=== PATIENT | male | born 1975 | race Caucasian/White ===

== ENCOUNTER 2018-02-18 09:30 | Inpatient (IN) | payer OTHER ==
[2018-02-18 10:48] VITALS: BMI 24.8
--- NOTE | 2018-02-18 11:37 | HP ---
CIWA Score - CIWA Score Nausea/Vomitin-Mild Nausea/No Vomiting Muscle Tremors: 2 Anxiety: 2 Agitation: 0-Normal Activity Paroxysmal Sweats: 1-Minimal Palms Moist Orientation: 1-Uncertain about Date Tacttile Disturbances: 2-Mild Itch/Numbness/Burn Auditory Disturbances: 0-None Visual Disturbances: 0-None Headache: 2-Mild CIWA-Ar Total Score: 11 Admission [facility] - HPI Chief Complaint: ETOH withdrawal symptoms. Allergies/Adverse Reactions: Allergies Allergy/AdvReac Type Severity Reaction Status Date / Time No Known Allergies Allergy Verified 02/18/18 11:19 History of Present Illness: Patient presents with ETOH withdrawal symptoms and crack/cocaine dependence. Patient started drinking at age 15. Patient drinks up to one case of beer and 1 pint of liquor daily. Patient denies hx of seizures. Patient also smokes crack/ cocaine since age 15 and unable to quantify amount he uses. States when he does use, he binges on crack/cocaine for days. Last time he drank ETOH and Smoked crack cocaine was last night. Patient smokes marijuana as well. Last time he smoked was last night. Smokes 2-3 joints daily. Denies SI/HI and suicide attempts. Exam Limitations: No Limitations - Ebola screening Have you traveled outside of the country in the last 21 days: No Have you had contact with anyone from an Ebola affected area: No Have you been sick,other than usual withdrawal symptoms: No Do you have a fever: No - Review of Systems Constitutional: Chills, Night Sweats, Changes in sleep, Unexplained wgt Loss EENT: reports: No Symptoms Reported Respiratory: reports: No Symptoms reported Cardiac: reports: No Symptoms Reported GI: reports: Diarrhea, Nausea, Poor Fluid Intake, Abdominal cramping : reports: No Symptoms Reported Musculoskeletal: reports: Joint Pain, Muscle Pain Integumentary: reports: Sweating Neuro: reports: Headache, Numbness, Tingling, Tremors Endocrine: reports: Unexplained Weight Loss Hematology: reports: No Symptoms Reported Psychiatric: reports: Anxious, Depressed Patient History - Patient Medical History Hx Anemia: No Hx Asthma: No Hx Chronic Obstructive Pulmonary Disease (COPD): No Hx Cancer: No Hx Cardiac Disorders: No Hx Congestive Heart Failure: No Hx Hypertension: No Hx Hypercholesterolemia: No Hx Pacemaker: No HX Cerebrovascular Accident: No Hx Seizures: No Hx Dementia: No Hx Diabetes: No Hx Gastrointestinal Disorders: No Hx Liver Disease: No Hx Genitourinary Disorders: No Hx Sexually Transmitted Disorders: No Hx Renal Disease (ESRD): No Hx Thyroid Disease: No Hx Human Immunodeficiency Virus (HIV): No Hx Hepatitis C: No Hx Depression: No Hx Suicide Attempt: No Hx Bipolar Disorder: No Hx Schizophrenia: No - Patient Surgical History Past Surgical History: No Hx Neurologic Surgery: No Hx Cataract Extraction: No Hx Cardiac Surgery: No Hx Lung Surgery: No Hx Breast Surgery: No Hx Breast Biopsy: No Hx Abdominal Surgery: No Hx Appendectomy: No Hx Cholecystectomy: No Hx Genitourinary Surgery: No Hx Orthopedic Surgery: No Anesthesia Reaction: No - PPD History Previous Implant?: Yes Documented Results: Negative w/o proof Implanted On Prior R Admission?: No PPD to be Administered?: Yes - Smoking Cessation Smoking history: Current every day smoker Have you smoked in the past 12 months: Yes Aproximately how many cigarettes per day: 10 Hx Chewing Tobacco Use: No Initiated information on smoking cessation: Yes 'Breaking Loose' booklet given: 02/18/18 - Substance & Tx. History Hx Alcohol Use: Yes Hx Substance Use: Yes Substance Use Type: Alcohol, Cocaine, Marijuana Hx Substance Use Treatment: No - Substances Abused Crack Route: Smoking Frequency: 3-6 times per week Amount used: $100 Age of first use: 15 Date of Last Use: 02/17/18 Alcohol-cognac/beer Route: Oral Frequency: 3-6 times per week Amount used: 2 pts/1 case Age of first use: 15 Date of Last Use: 02/17/18 Marijuana Route: Smoking Frequency: Daily Amount used: $20-30 Age of first use: 15 Date of Last Use: 02/17/18 Family Disease History - Family Disease History Family Disease History: Diabetes: Mother Admission Physical Exam S - Vital Signs Vital Signs: Vital Signs - 24 hr 02/18/18 10:27 Temperature 97.3 F L Pulse Rate 64 Respiratory 20 Rate Blood Pressure 135/75 Cleared for Admission [facility] - Detox or Rehab [facility] Level of Care: Medically Managed Detox Regimen/Protocol: Librium [facility] Breath Alcohol Content Breath Alcohol Content: 0 Urine Drug Screen - Results Drug Screen Negative: No Urine Drug Screen Results: THC-Marijuana, BRIAN-Cocaine
[2018-02-18] MEDS ORDERED: IBUPROFEN 400 MG TABLET (FP) PO PRN (11:47)
[2018-02-18] MEDS ORDERED: MAGNESIUM HYDROX 2400MG/30ML ORAL SUSPENSION 30 ML CUP PO PRN (11:47)
[2018-02-18] MEDS ORDERED: P-EPHED 60MG/TRIPROLIDI 2.5MG TABLET PO PRN (11:47)
[2018-02-18] MEDS ORDERED: NICOTINE POLACRILEX 2 MG GUM BUC PRN (11:47)
[2018-02-18] MEDS ORDERED: ACETAMINOPHEN 325 MG TABLET (FP) PO PRN (11:47)
[2018-02-18] MEDS ORDERED: MENTHOL/PHENOL 1 EACH UD MM PRN (11:47)
[2018-02-18] MEDS ORDERED: hydrOXYzine PAMOATE 50 MG CAPSULE (FP) PO PRN (11:47)
[2018-02-18] MEDS ORDERED: LOPERAMIDE HCL 2 MG CAPSULE PO PRN (11:47)
[2018-02-18] MEDS ORDERED: guaiFENesin/D-METHORPHAN HB 10 ML UNIT-DOSE CUPS PO PRN (11:47)
[2018-02-18] MEDS ORDERED: MAGNESIUM CITRATE 300 ML BOTTLE PO PRN (11:47)
[2018-02-18] MEDS ORDERED: MAG HYDROX/AL HYDROX/SIMETH 30 ML UNIT-DOSE CUP PO PRN (11:47)
[2018-02-18] MEDS ORDERED: chlordiazePOXIDE HCL 25 MG CAPSULE PO PRN (11:50)
[2018-02-18 14:44] LABS: HEMATOCRIT 41.7 % (35.4-49); HEMOGLOBIN 14.2 GM/dL (11.7-16.9); MCH 28.5 pg (25.7-33.7); MEAN CELL VOLUME 83.8 fl (80-96); MEAN PLT VOLUME 9.1 fl (7.5-11.1); PLATELET COUNT 206 K/MM3 (134-434); RBC 4.98 M/mm3 (4.00-5.60); RDW 14.7 % (11.9-15.9); WHITE BLOOD COUNT 8.5 K/mm3 (4.0-10.0)
[2018-02-18 14:58] LABS: ALBUMIN 3.6 g/dl (3.4-5.0); ANION GAP 5 (8-16); BLOOD UREA NITROGEN 25 mg/dL (7-18); CALCIUM 8.7 mg/dL (8.5-10.1); CHLORIDE 105 mmol/L (98-107); CO2 29 mmol/L (21-32); GLUCOSE,RANDOM 76 mg/dL (74-106); POTASSIUM 4.3 mmol/L (3.5-5.1); SODIUM 139 mmol/L (136-145)
[2018-02-18 15:02] LABS: ALK PHOS 74 U/L (45-117); SGOT/AST 28 U/L (15-37); SGPT/ALT 23 U/L (12-78); TOT PROT 6.6 g/dl (6.4-8.2)
--- NOTE | 2018-02-18 15:49 | EKG ---
Test Reason : Blood Pressure : / mmHG Vent. Rate : 055 BPM Atrial Rate : 055 BPM P-R Int : 188 ms QRS Dur : 084 ms QT Int : 452 ms P-R-T Axes : 061 061 056 degrees QTc Int : 432 ms SINUS BRADYCARDIA EARLY REPOLARIZATION OTHERWISE NORMAL ECG NO PREVIOUS ECGS AVAILABLE Confirmed by MAURO SINGH, RAYNE ([id number]) on 02/18/2018 3:49:48 PM Referred By: Confirmed By:RAYNE WADE MD
[2018-02-18] MEDS: chlordiazePOXIDE HCL 25 MG CAPSULE PO SCH ×2 (17:58→22:41)
[2018-02-18 18:40] LABS: URINE APPEARANCE TURBID; URINE BILIRUBIN NEGATIVE (<2.0 mg/dL); URINE COLOR AMBER; URINE GLUCOSE (UA) NEGATIVE (NEGATIVE); URINE KETONE NEGATIVE (NEGATIVE); URINE LEUK ESTERASE TRACE (NEGATIVE); URINE NITRITE NEGATIVE (NEGATIVE); URINE UROBILINOGEN NEGATIVE mg/dL (0.2-1.0)
[2018-02-18 18:42] LABS: URINE PROTEIN 1+ (NEGATIVE)
[2018-02-18 18:56] LABS: URINE MUCUS MANY
[2018-02-18] MEDS ORDERED: MELATONIN 5 MG TABLETS PO PRN (22:00)
[2018-02-18] MEDS: THIAMINE HCL 100 MG TABLET (FP) PO SCH (22:41)
[2018-02-19] MEDS: chlordiazePOXIDE HCL 25 MG CAPSULE PO SCH ×4 (06:13→23:31)
--- NOTE | 2018-02-19 09:26 | CONSULT ---
[facility] Psychiatric Consult - Data Date of interview: 02/19/18 Admission source: [facility] Identifying data: Patient is a 42 year old single male, without kids, unemployed , and homeless. This is patient's first admission to detox. Pt. admitted to for alcohol and marijuana dependence. Substance Abuse History: - Smoking Cessation. Smoking history: Current every day smoker. Have you smoked in the past 12 months: Yes. Aproximately how many cigarettes per day: 10. Hx Chewing Tobacco Use: No. Initiated information on smoking cessation: Yes. 'Breaking Loose' booklet given: 02/18/18. - Substance & Tx. History. Hx Alcohol Use: Yes. Hx Substance Use: Yes. Substance Use Type : Alcohol, Cocaine, Marijuana. Hx Substance Use Treatment: No. - Substances Abused. Crack. Route: Smoking. Frequency: 3-6 times per week. Amount used : $100. Age of first use: 15. Date of Last Use: 02/17/18. Alcohol-cognac/ beer. Route: Oral. Frequency: 3-6 times per week. Amount used: 2 pts/1 case. Age of first use: 15. Date of Last Use: 02/17/18. Marijuana. Route: Smoking. Frequency: Daily. Amount used: $20-30. Age of first use: 15. Date of Last Use: 02/17/18 Medical History: Denies. Psychiatric History: Patient denies h/o psychiatric hospitalization, outpatient care, and suicide attempt. Physical/Sexual Abuse/Trauma History: Denies. Mental Status Exam - Mental Status Exam Alert and Oriented to: Time, Place, Person Cognitive Function: Good Patient Appearance: Well Groomed Mood: Withdrawn Affect: Mood Congruent Patient Behavior: Fatigued, Guarded Speech Pattern: Delayed Voice Loudness: Moderately Soft/Quiet Thought Process: Goal Oriented Thought Disorder: Not Present Hallucinations: Denies Suicidal Ideation: Denies Homicidal Ideation: Denies Insight/Judgement: Poor Sleep: Fair Appetite: Fair Muscle strength/Tone: Normal Gait/Station: Other (Did not observe patient's gait.) Psychiatric Findings - Problem List ([place] 1, 2,3) (1) Substance induced mood disorder Current Visit: Yes Status: Acute (2) Alcohol dependence with uncomplicated withdrawal Current Visit: Yes Status: Acute (3) Cannabis dependence, uncomplicated Current Visit: Yes Status: Acute (4) Cocaine dependence, uncomplicated Current Visit: Yes Status: Acute - Initial Treatment Plan Initial Treatment Plan: Psychoeducation provided. Detoxification in progress. Observation.
--- NOTE | 2018-02-19 10:29 | PN ---
S CIWA - CIWA Score Nausea/Vomitin-No Nausea/No Vomiting Muscle Tremors: 4-Moderate,w/Arms Extend Anxiety: 4-Mod. Anxious/Guarded Agitation: 4-Moderately Restless Paroxysmal Sweats: 1-Minimal Palms Moist Orientation: 0-Oriented Tacttile Disturbances: 0-None Auditory Disturbances: 0-None Visual Disturbances: 0-None Headache: 0-None Present CIWA-Ar Total Score: 13 BHS Progress Note (SOAP) Subjective: ANXIETY,SLIGHT TREMORS,SWEATS. Objective: 02/19/18 10:29 Vital Signs 02/19/18 02/19/18 02/19/18 03:30 05:52 06:30 Temperature 97.6 F Pulse Rate 57 L Respiratory 18 18 18 Rate Blood Pressure 100/62 02/19/18 09:13 Temperature 97.2 F L Pulse Rate 73 Respiratory 18 Rate Blood Pressure 103/77 Laboratory Tests 02/18/18 02/18/18 02/18/18 11:30 11:50 11:50 WBC 8.5 RBC 4.98 Hgb 14.2 Hct 41.7 MCV 83.8 MCH 28.5 MCHC 34.0 RDW 14.7 Plt Count 206 MPV 9.1 Sodium 139 Potassium 4.3 Chloride 105 Carbon Dioxide 29 Anion Gap 5 L BUN 25 H Creatinine 1.0 Creat Clearance w eGFR > 60 Random Glucose 76 Calcium 8.7 Total Bilirubin 1.0 AST 28 ALT 23 Alkaline Phosphatase 74 Total Protein 6.6 Albumin 3.6 Urine Color Urine Appearance Urine pH Ur Specific [place] Urine Protein Urine Glucose (UA) Urine Ketones Urine Blood Urine Nitrite Urine Bilirubin Urine Urobilinogen Ur Leukocyte Esterase Urine WBC (Auto) Urine RBC (Auto) Urine Mucus RPR Titer HIV 1&2 Antibody Screen Negative HIV P24 Antigen Negative 02/18/18 02/18/18 11:50 13:34 WBC RBC Hgb Hct MCV MCH MCHC RDW Plt Count MPV Sodium Potassium Chloride Carbon Dioxide Anion Gap BUN Creatinine Creat Clearance w eGFR Random Glucose Calcium Total Bilirubin AST ALT Alkaline Phosphatase Total Protein Albumin Urine Color Farhana Urine Appearance Turbid Urine pH 6.0 Ur Specific [place] 1.032 Urine Protein 1+ H Urine Glucose (UA) Negative Urine Ketones Negative Urine Blood Negative Urine Nitrite Negative Urine Bilirubin Negative Urine Urobilinogen Negative Ur Leukocyte Esterase Trace Urine WBC (Auto) 4 Urine RBC (Auto) 2 Urine Mucus Many RPR Titer Nonreactive HIV 1&2 Antibody Screen HIV P24 Antigen Assessment: 02/19/18 10:29 WITHDRAWAL SX Plan: CONTINUE DETOX
[2018-02-19] MEDS: PRENATAL VITAMINS W/ FOLIC ACID TABLET (FP) PO SCH (10:32)
[2018-02-19] MEDS: NICOTINE 21 MG/24 HOURS TOPICAL PATCH TD SCH (10:32)
[2018-02-19] MEDS: THIAMINE HCL 100 MG TABLET (FP) PO SCH (23:31)
[2018-02-20] MEDS: chlordiazePOXIDE HCL 25 MG CAPSULE PO SCH (06:56)
[2018-02-20] MEDS ORDERED: diazePAM 5 MG TABLET PO PRN (09:47)
[2018-02-20] MEDS ORDERED: diazePAM 5 MG TABLET PO ONE (09:47)
[2018-02-20] MEDS: NICOTINE 21 MG/24 HOURS TOPICAL PATCH TD SCH (10:32)
[2018-02-20] MEDS: PRENATAL VITAMINS W/ FOLIC ACID TABLET (FP) PO SCH (10:33)
[2018-02-20] MEDS: diazePAM 5 MG TABLET PO SCH ×2 (10:34→22:47)
--- NOTE | 2018-02-20 11:13 | PN ---
S CIWA - CIWA Score Nausea/Vomitin-No Nausea/No Vomiting Muscle Tremors: 1-None Visible, but [place] Anxiety: 5 Agitation: 4-Moderately Restless Paroxysmal Sweats: 3 Orientation: 0-Oriented Tacttile Disturbances: 0-None Auditory Disturbances: 0-None Visual Disturbances: 0-None Headache: 0-None Present CIWA-Ar Total Score: 13 S Progress Note (SOAP) Subjective: C/O DRENCHING SWEATS(SHIRTS OFF0, MUSCLE ACHES,ANXIETY,IRRITABILITY,FATIGUE. PT REFUSED TO TAKE LIBRIUM PREVIOUS DAYS STATING "I DON'T LIKE THE TASTE". DISCUSSED WITH PATIENT WILL CHANGE PROTOCOL TO VALIUM REGIMEN. PT IS IN AGREEMENT TO TAKE VALIUM INSTEAD OF LIBRIUM FOR DETOX WITHDRAWAL SX. Objective: 02/20/18 11:12 Vital Signs 02/20/18 02/20/18 02/20/18 03:30 06:12 09:04 Temperature 97.3 F L 97.9 F Pulse Rate 62 61 Respiratory 18 16 18 Rate Blood Pressure 122/80 123/76 Laboratory Tests 02/18/18 02/18/18 02/18/18 11:30 11:50 11:50 WBC 8.5 RBC 4.98 Hgb 14.2 Hct 41.7 MCV 83.8 MCH 28.5 MCHC 34.0 RDW 14.7 Plt Count 206 MPV 9.1 Sodium 139 Potassium 4.3 Chloride 105 Carbon Dioxide 29 Anion Gap 5 L BUN 25 H Creatinine 1.0 Creat Clearance w eGFR > 60 Random Glucose 76 Calcium 8.7 Total Bilirubin 1.0 AST 28 ALT 23 Alkaline Phosphatase 74 Total Protein 6.6 Albumin 3.6 Urine Color Urine Appearance Urine pH Ur Specific [place] Urine Protein Urine Glucose (UA) Urine Ketones Urine Blood Urine Nitrite Urine Bilirubin Urine Urobilinogen Ur Leukocyte Esterase Urine WBC (Auto) Urine RBC (Auto) Urine Mucus RPR Titer HIV 1&2 Antibody Screen Negative HIV P24 Antigen Negative 02/18/18 02/18/18 11:50 13:34 WBC RBC Hgb Hct MCV MCH MCHC RDW Plt Count MPV Sodium Potassium Chloride Carbon Dioxide Anion Gap BUN Creatinine Creat Clearance w eGFR Random Glucose Calcium Total Bilirubin AST ALT Alkaline Phosphatase Total Protein Albumin Urine Color Farhana Urine Appearance Turbid Urine pH 6.0 Ur Specific [place] 1.032 Urine Protein 1+ H Urine Glucose (UA) Negative Urine Ketones Negative Urine Blood Negative Urine Nitrite Negative Urine Bilirubin Negative Urine Urobilinogen Negative Ur Leukocyte Esterase Trace Urine WBC (Auto) 4 Urine RBC (Auto) 2 Urine Mucus Many RPR Titer Nonreactive HIV 1&2 Antibody Screen HIV P24 Antigen Assessment: 02/20/18 11:12 WITHDRAWAL SX Plan: CONTINUE DETOX. D/C LIBRIUM TAPER. START VALIUM TAPER DIRECTED. INCREASE PO FLUIDS.
[2018-02-20] MEDS ORDERED: chlordiazePOXIDE 5 MG CAPSULE PO SCH (17:00)
[2018-02-20] MEDS: THIAMINE HCL 100 MG TABLET (FP) PO SCH (22:47)
[2018-02-21] MEDS: PRENATAL VITAMINS W/ FOLIC ACID TABLET (FP) PO SCH (10:40)
[2018-02-21] MEDS: diazePAM 5 MG TABLET PO SCH ×2 (10:41→22:46)
[2018-02-21] MEDS: NICOTINE 21 MG/24 HOURS TOPICAL PATCH TD SCH (11:41)
--- NOTE | 2018-02-21 16:38 | PN ---
BHS Progress Note (SOAP) Subjective: Sweating, Anxious, Fatigue. Objective: PATIENT A & O X 3, OBSERVED AMBULATING ON UNIT. NO ACUTE DISTRESS. 02/21/18 16:36 Vital Signs Temperature 98.4 F 02/21/18 06:13 Pulse Rate 54 L 02/21/18 06:13 Respiratory Rate 18 02/21/18 06:30 Blood Pressure 104/67 02/21/18 06:13 O2 Sat by Pulse Oximetry (%) Laboratory Tests 02/18/18 02/18/18 02/18/18 11:30 11:50 11:50 WBC 8.5 RBC 4.98 Hgb 14.2 Hct 41.7 MCV 83.8 MCH 28.5 MCHC 34.0 RDW 14.7 Plt Count 206 MPV 9.1 Sodium 139 Potassium 4.3 Chloride 105 Carbon Dioxide 29 Anion Gap 5 L BUN 25 H Creatinine 1.0 Creat Clearance w eGFR > 60 Random Glucose 76 Calcium 8.7 Total Bilirubin 1.0 AST 28 ALT 23 Alkaline Phosphatase 74 Total Protein 6.6 Albumin 3.6 Urine Color Urine Appearance Urine pH Ur Specific [place] Urine Protein Urine Glucose (UA) Urine Ketones Urine Blood Urine Nitrite Urine Bilirubin Urine Urobilinogen Ur Leukocyte Esterase Urine WBC (Auto) Urine RBC (Auto) Urine Mucus RPR Titer HIV 1&2 Antibody Screen Negative HIV P24 Antigen Negative 02/18/18 02/18/18 11:50 13:34 WBC RBC Hgb Hct MCV MCH MCHC RDW Plt Count MPV Sodium Potassium Chloride Carbon Dioxide Anion Gap BUN Creatinine Creat Clearance w eGFR Random Glucose Calcium Total Bilirubin AST ALT Alkaline Phosphatase Total Protein Albumin Urine Color Farhana Urine Appearance Turbid Urine pH 6.0 Ur Specific [place] 1.032 Urine Protein 1+ H Urine Glucose (UA) Negative Urine Ketones Negative Urine Blood Negative Urine Nitrite Negative Urine Bilirubin Negative Urine Urobilinogen Negative Ur Leukocyte Esterase Trace Urine WBC (Auto) 4 Urine RBC (Auto) 2 Urine Mucus Many RPR Titer Nonreactive HIV 1&2 Antibody Screen HIV P24 Antigen LABS NOTED. Assessment: 02/21/18 16:37 WITHDRAWAL SYMPTOMS. Plan: CONTINUE DETOX. INCREASE DAILY PO FLUID INTAKE.
[2018-02-21] MEDS ORDERED: chlordiazePOXIDE HCL 10 MG CAPSULE PO SCH (17:00)
[2018-02-21] MEDS: THIAMINE HCL 100 MG TABLET (FP) PO SCH (22:46)
[2018-02-22] MEDS ORDERED: diazePAM 5 MG TABLET PO SCH (10:00)
[2018-02-22] MEDS: NICOTINE 21 MG/24 HOURS TOPICAL PATCH TD SCH (11:00)
[2018-02-22] MEDS: PRENATAL VITAMINS W/ FOLIC ACID TABLET (FP) PO SCH (11:00)
--- NOTE | 2018-02-22 12:30 | PN ---
BHS Progress Note (SOAP) Subjective: states he is feeling fine Objective: 02/22/18 12:29 Vital Signs - 24 hr 02/21/18 02/21/18 02/22/18 18:02 22:09 00:30 Temperature 97.4 F L 98.9 F Pulse Rate 61 79 Respiratory 16 16 18 Rate Blood Pressure 105/62 116/77 02/22/18 02/22/18 02/22/18 03:30 06:07 06:30 Temperature 97.1 F L Pulse Rate 55 L Respiratory 18 18 18 Rate Blood Pressure 125/83 02/22/18 09:13 Temperature 97 F L Pulse Rate 59 L Respiratory 18 Rate Blood Pressure 108/72 Laboratory Tests 02/18/18 02/18/18 02/18/18 11:30 11:50 11:50 WBC 8.5 RBC 4.98 Hgb 14.2 Hct 41.7 MCV 83.8 MCH 28.5 MCHC 34.0 RDW 14.7 Plt Count 206 MPV 9.1 Sodium 139 Potassium 4.3 Chloride 105 Carbon Dioxide 29 Anion Gap 5 L BUN 25 H Creatinine 1.0 Creat Clearance w eGFR > 60 Random Glucose 76 Calcium 8.7 Total Bilirubin 1.0 AST 28 ALT 23 Alkaline Phosphatase 74 Total Protein 6.6 Albumin 3.6 Urine Color Urine Appearance Urine pH Ur Specific [place] Urine Protein Urine Glucose (UA) Urine Ketones Urine Blood Urine Nitrite Urine Bilirubin Urine Urobilinogen Ur Leukocyte Esterase Urine WBC (Auto) Urine RBC (Auto) Urine Mucus RPR Titer HIV 1&2 Antibody Screen Negative HIV P24 Antigen Negative 02/18/18 02/18/18 11:50 13:34 WBC RBC Hgb Hct MCV MCH MCHC RDW Plt Count MPV Sodium Potassium Chloride Carbon Dioxide Anion Gap BUN Creatinine Creat Clearance w eGFR Random Glucose Calcium Total Bilirubin AST ALT Alkaline Phosphatase Total Protein Albumin Urine Color Farhana Urine Appearance Turbid Urine pH 6.0 Ur Specific [place] 1.032 Urine Protein 1+ H Urine Glucose (UA) Negative Urine Ketones Negative Urine Blood Negative Urine Nitrite Negative Urine Bilirubin Negative Urine Urobilinogen Negative Ur Leukocyte Esterase Trace Urine WBC (Auto) 4 Urine RBC (Auto) 2 Urine Mucus Many RPR Titer Nonreactive HIV 1&2 Antibody Screen HIV P24 Antigen nl VS, nl labs grossly nl PE Assessment: 02/22/18 12:30 Patient presents with ETOH dependence, doing well Plan: continue detox protocol
[2018-02-22] MEDS: THIAMINE HCL 100 MG TABLET (FP) PO SCH (22:42)
[2018-02-23 09:36] VITALS: BP 105/73; PULSE 72; TEMP 98.6
--- NOTE | 2018-02-23 16:30 | PN ---
S Progress Note (SOAP) Subjective: Patient reports mild sweating; patient denies any other withdrawal symptoms at this time. Objective: PATIENT A & O X 3, OBSERVED AMBULATING ON UNIT. NO ACUTE DISTRESS. 02/23/18 16:28 Vital Signs Temperature 98.6 F 02/23/18 09:35 Pulse Rate 72 02/23/18 09:35 Respiratory Rate 18 02/23/18 09:35 Blood Pressure 105/73 02/23/18 09:35 O2 Sat by Pulse Oximetry (%) Laboratory Tests 02/18/18 02/18/18 02/18/18 11:30 11:50 11:50 WBC 8.5 RBC 4.98 Hgb 14.2 Hct 41.7 MCV 83.8 MCH 28.5 MCHC 34.0 RDW 14.7 Plt Count 206 MPV 9.1 Sodium 139 Potassium 4.3 Chloride 105 Carbon Dioxide 29 Anion Gap 5 L BUN 25 H Creatinine 1.0 Creat Clearance w eGFR > 60 Random Glucose 76 Calcium 8.7 Total Bilirubin 1.0 AST 28 ALT 23 Alkaline Phosphatase 74 Total Protein 6.6 Albumin 3.6 Urine Color Urine Appearance Urine pH Ur Specific [place] Urine Protein Urine Glucose (UA) Urine Ketones Urine Blood Urine Nitrite Urine Bilirubin Urine Urobilinogen Ur Leukocyte Esterase Urine WBC (Auto) Urine RBC (Auto) Urine Mucus RPR Titer HIV 1&2 Antibody Screen Negative HIV P24 Antigen Negative 02/18/18 02/18/18 11:50 13:34 WBC RBC Hgb Hct MCV MCH MCHC RDW Plt Count MPV Sodium Potassium Chloride Carbon Dioxide Anion Gap BUN Creatinine Creat Clearance w eGFR Random Glucose Calcium Total Bilirubin AST ALT Alkaline Phosphatase Total Protein Albumin Urine Color Farhana Urine Appearance Turbid Urine pH 6.0 Ur Specific [place] 1.032 Urine Protein 1+ H Urine Glucose (UA) Negative Urine Ketones Negative Urine Blood Negative Urine Nitrite Negative Urine Bilirubin Negative Urine Urobilinogen Negative Ur Leukocyte Esterase Trace Urine WBC (Auto) 4 Urine RBC (Auto) 2 Urine Mucus Many RPR Titer Nonreactive HIV 1&2 Antibody Screen HIV P24 Antigen LABS NOTED. Assessment: 02/23/18 16:28 COMPLETION OF DETOX REGIMEN. Plan: PATIENT SCHEDULED FOR DISCHARGE FROM DETOX UNIT TODAY. PATIENT OFFERED OPPORTUNITY TO GO TO [facility], HOWEVER, PATIENT DECLINED AND ELECTED TO GO HOME INSTEAD.
--- NOTE | 2018-02-23 16:34 | DS ---
[facility] Detox Discharge Summary Admission Date: 02/18/18 Discharge Date: 02/23/18 - History Present History: Alcohol Dependence, Cannabis Dependence, Cocaine Dependence Additional Comments: PATIENT OFFERED OPPORTUNITY TO GO TO APPLY FOR ADMISSION TO [facility] FOR AFTERCARE; HOWEVER, PATIENT ELECTED TO GO HOME INSTEAD. PATIENT ADVISED TO CONSIDER LOCAL 12-STEP / NA/ AA OUTPATIENT SUPPORT GROUPS FOR AFTERCARE. PATIENT WAS DISCHARGED FROM DETOX UNIT IN STABLE MEDICAL CONDITION. - Physical Exam Results Vital Signs: Vital Signs Temperature 98.6 F 02/23/18 09:35 Pulse Rate 72 02/23/18 09:35 Respiratory Rate 18 02/23/18 09:35 Blood Pressure 105/73 02/23/18 09:35 O2 Sat by Pulse Oximetry (%) Pertinent Admission Physical Exam Findings: WITHDRAWAL SYMPTOMS. Laboratory Tests 02/18/18 02/18/18 02/18/18 11:30 11:50 11:50 WBC 8.5 RBC 4.98 Hgb 14.2 Hct 41.7 MCV 83.8 MCH 28.5 MCHC 34.0 RDW 14.7 Plt Count 206 MPV 9.1 Sodium 139 Potassium 4.3 Chloride 105 Carbon Dioxide 29 Anion Gap 5 L BUN 25 H Creatinine 1.0 Creat Clearance w eGFR > 60 Random Glucose 76 Calcium 8.7 Total Bilirubin 1.0 AST 28 ALT 23 Alkaline Phosphatase 74 Total Protein 6.6 Albumin 3.6 Urine Color Urine Appearance Urine pH Ur Specific [place] Urine Protein Urine Glucose (UA) Urine Ketones Urine Blood Urine Nitrite Urine Bilirubin Urine Urobilinogen Ur Leukocyte Esterase Urine WBC (Auto) Urine RBC (Auto) Urine Mucus RPR Titer HIV 1&2 Antibody Screen Negative HIV P24 Antigen Negative 02/18/18 02/18/18 11:50 13:34 WBC RBC Hgb Hct MCV MCH MCHC RDW Plt Count MPV Sodium Potassium Chloride Carbon Dioxide Anion Gap BUN Creatinine Creat Clearance w eGFR Random Glucose Calcium Total Bilirubin AST ALT Alkaline Phosphatase Total Protein Albumin Urine Color Farhana Urine Appearance Turbid Urine pH 6.0 Ur Specific [place] 1.032 Urine Protein 1+ H Urine Glucose (UA) Negative Urine Ketones Negative Urine Blood Negative Urine Nitrite Negative Urine Bilirubin Negative Urine Urobilinogen Negative Ur Leukocyte Esterase Trace Urine WBC (Auto) 4 Urine RBC (Auto) 2 Urine Mucus Many RPR Titer Nonreactive HIV 1&2 Antibody Screen HIV P24 Antigen LABS NOTED. - Treatment Hospital Course: Detox Protocol Followed, Detoxed Safely, Responded well, Discharged Condition Good Patient has Accepted a Rehab Referral to: PT ADVISED TO CONSIDER LOCAL 12-STEP/ NA/AA OUTPATIENT SUPPORT GROUPS. - Medication Discharge Medications: Ambulatory Orders NK [No Known Home Medication] 02/18/18 - Diagnosis (1) Alcohol dependence with uncomplicated withdrawal Status: Acute (2) Cannabis dependence, uncomplicated Status: Acute (3) Cocaine dependence, uncomplicated Status: Acute (4) Substance induced mood disorder Status: Acute - AMA Did Patient Leave Against Medical Advice: No
== END 2018-02-23 09:58 | disposition home or self-care (01) | DRG 774 ==
LOC: YASAS 09:30 → Y3N 12:35
PROVIDERS: ADMIT Surgery; ATTEND Surgery
PROC: HZ2ZZZZ Detoxification Services for Substance Abuse Treatment (ICD-10-PCS; principal; 2018-02-18)
DX: F10.230 Alcohol dependence with withdrawal, uncomplicated (principal); F14.20 Cocaine dependence, uncomplicated; F12.20 Cannabis dependence, uncomplicated; F19.24 Other psychoactive substance dependence with psychoactive substance-induced mood disorder; Z59.0 Homelessness
CPT/HCPCS: 36415; 80053; 81003; 81015; 85027; 86593; 87389; 93005; 93010

== ENCOUNTER 2020-07-30 10:29 | Inpatient (IN) | payer OTHER ==
[2020-07-30] MEDS ORDERED: MAG HYDROX/AL HYDROX/SIMETH 30 ML UNIT-DOSE CUP PO PRN (12:14)
[2020-07-30] MEDS ORDERED: MAGNESIUM CITRATE 300 ML BOTTLE PO PRN (12:14)
[2020-07-30] MEDS ORDERED: BISMUTH SUBSALICYLATE 524 MG/30 ML UD PO PRN (12:14)
[2020-07-30] MEDS ORDERED: MAGNESIUM HYDROX 2400MG/30ML ORAL SUSPENSION 30 ML CUP PO PRN (12:14)
[2020-07-30] MEDS ORDERED: MENTHOL/PHENOL 1 EACH UD MM PRN (12:14)
[2020-07-30] MEDS ORDERED: ACETAMINOPHEN 325 MG TABLET (FP) PO PRN ×2 (12:14)
[2020-07-30] MEDS ORDERED: NICOTINE POLACRILEX 2 MG GUM BUC PRN (12:14)
[2020-07-30] MEDS ORDERED: chlordiazePOXIDE HCL 25 MG CAPSULE PO PRN (12:14)
[2020-07-30] MEDS ORDERED: IBUPROFEN 400 MG TABLET (FP) PO PRN (12:14)
[2020-07-30] MEDS ORDERED: METHOCARBAMOL 500 MG TABLET PO PRN (12:14)
[2020-07-30] MEDS ORDERED: ONDANSETRON *ODT* 4 MG TABLET SL PRN (12:14)
[2020-07-30 12:29] VITALS: BMI 22.3
[2020-07-30] MEDS: hydrOXYzine PAMOATE 25 MG CAPSULE (FP) PO SCH ×3 (13:18→22:24)
[2020-07-30] MEDS: NICOTINE 21 MG/24 HOURS TOPICAL PATCH TD SCH (13:21)
[2020-07-30] MEDS ORDERED: MASKS NR ONE (16:49)
[2020-07-30] MEDS: chlordiazePOXIDE HCL 25 MG CAPSULE PO SCH ×2 (16:53→22:24)
[2020-07-30] MEDS: MELATONIN 5 MG TABLETS PO SCH (22:24)
[2020-07-30] MEDS: THIAMINE HCL 100 MG TABLET (FP) PO SCH (22:24)
[2020-07-31] MEDS: hydrOXYzine PAMOATE 25 MG CAPSULE (FP) PO SCH ×4 (07:03→17:52)
[2020-07-31] MEDS: chlordiazePOXIDE HCL 25 MG CAPSULE PO SCH ×4 (07:03→22:23)
[2020-07-31] MEDS: NICOTINE 21 MG/24 HOURS TOPICAL PATCH TD SCH (11:30)
[2020-07-31] MEDS: PRENATAL VITAMINS W/ FOLIC ACID TABLET (FP) PO SCH (11:30)
[2020-07-31 11:54] LABS: HEMATOCRIT 41.7 % (35.4-49); MCH 28.9 pg (25.7-33.7); MCHC 33.6 g/dl (32.0-35.9); MEAN CELL VOLUME 85.8 fl (80-96); MEAN PLT VOLUME 9.1 fl (7.5-11.1); PLATELET COUNT 176 K/MM3 (134-434); POTASSIUM 3.9 mmol/L (3.5-5.1); RBC 4.86 M/mm3 (4.00-5.60); RDW 15.2 % (11.9-15.9); WHITE BLOOD COUNT 6.6 K/mm3 (4.0-10.0)
[2020-07-31 11:59] LABS: CALCIUM 8.3 mg/dL (8.5-10.1)
[2020-07-31 12:00] LABS: ALBUMIN 3.3 g/dl (3.4-5.0); BLOOD UREA NITROGEN 13.2 mg/dL (7-18)
[2020-07-31 12:03] LABS: CREATININE 0.9 mg/dL (0.55-1.3)
[2020-07-31 12:04] LABS: BILIRUBIN,TOTAL 0.9 mg/dL (0.2-1); TOT PROT 6.1 g/dl (6.4-8.2)
[2020-07-31 17:39] LABS: HIV INTERPRETATION NEGATIVE (NEGATIVE)
[2020-07-31] MEDS: THIAMINE HCL 100 MG TABLET (FP) PO SCH (22:23)
[2020-07-31] MEDS: MELATONIN 5 MG TABLETS PO SCH (22:23)
[2020-08-01] MEDS ORDERED: chlordiazePOXIDE HCL 25 MG CAPSULE PO SCH (05:00)
[2020-08-01] MEDS ORDERED: LORazepam 1 MG TABLET PO PRN (09:10)
[2020-08-01] MEDS: NICOTINE 21 MG/24 HOURS TOPICAL PATCH TD SCH (11:25)
[2020-08-01] MEDS: LORazepam 2 MG TABLET PO SCH ×3 (11:25→22:05)
[2020-08-01] MEDS: PRENATAL VITAMINS W/ FOLIC ACID TABLET (FP) PO SCH (11:26)
[2020-08-01] MEDS ORDERED: FLU VACCINE (FLULAVAL) PF 60 MCG/0.5 ML SYRINGE 2020-2021 IM ONE (12:00)
[2020-08-01] MEDS: MELATONIN 5 MG TABLETS PO SCH (22:05)
[2020-08-01] MEDS: THIAMINE HCL 100 MG TABLET (FP) PO SCH (22:05)
[2020-08-02] MEDS ORDERED: chlordiazePOXIDE HCL 10 MG CAPSULE PO PRN
[2020-08-02] MEDS ORDERED: chlordiazePOXIDE HCL 10 MG CAPSULE PO SCH (05:00)
[2020-08-02] MEDS: LORazepam 1 MG TABLET PO SCH ×4 (06:27→22:12)
[2020-08-02] MEDS: PRENATAL VITAMINS W/ FOLIC ACID TABLET (FP) PO SCH (10:07)
[2020-08-02] MEDS: NICOTINE 21 MG/24 HOURS TOPICAL PATCH TD SCH (10:55)
[2020-08-02] MEDS: THIAMINE HCL 100 MG TABLET (FP) PO SCH (22:12)
[2020-08-02] MEDS: MELATONIN 5 MG TABLETS PO SCH (22:12)
[2020-08-03] MEDS ORDERED: LORazepam 0.5 MG TABLET PO PRN
[2020-08-03] MEDS ORDERED: chlordiazePOXIDE HCL 10 MG CAPSULE PO SCH (05:00)
[2020-08-03] MEDS: LORazepam 0.5 MG TABLET PO SCH ×2 (05:39→10:03)
[2020-08-03 09:16] VITALS: BP 120/81; PULSE 84; TEMP 97.7
[2020-08-03] MEDS: NICOTINE 21 MG/24 HOURS TOPICAL PATCH TD SCH (10:04)
[2020-08-03] MEDS: PRENATAL VITAMINS W/ FOLIC ACID TABLET (FP) PO SCH (10:04)
[2020-08-03] MEDS ORDERED: MASKS NR ONE (10:34)
[2020-08-04] MEDS ORDERED: LORazepam 0.5 MG TABLET PO ONE (05:00)
[2020-08-04] MEDS ORDERED: chlordiazePOXIDE HCL 10 MG CAPSULE PO ONE (05:00)
== END 2020-08-03 11:12 | disposition home or self-care (01) | DRG 774 ==
LOC: YASAS 10:29 → Y6N 12:19
PROVIDERS: ADMIT Allergy & Immunology; ATTEND Allergy & Immunology
PROC: HZ2ZZZZ Detoxification Services for Substance Abuse Treatment (ICD-10-PCS; principal; 2020-07-30)
DX: F10.230 Alcohol dependence with withdrawal, uncomplicated (principal); F14.20 Cocaine dependence, uncomplicated; F17.210 Nicotine dependence, cigarettes, uncomplicated; F19.24 Other psychoactive substance dependence with psychoactive substance-induced mood disorder; M54.89 Other dorsalgia; M21.612 Bunion of left foot; Z59.0 Homelessness
CPT/HCPCS: 36415; 80053; 85027; 86780; 87389; C9803; U0003

== ENCOUNTER 2020-08-24 16:44 | Emergency (ER) | payer OTHER ==
[2020-08-24 17:19] VITALS: BP 108/69; PULSE 84; TEMP 98.4; BMI 22.6
[2020-08-24 17:51] LABS: EPI CELLS 7 /uL (0-25.1); HYALINE CASTS 1 /uL (0-3.1); URINE APPEARANCE CLEAR; URINE BACTERIA 3117 /uL (0-1359); URINE BILIRUBIN NEGATIVE (NEGATIVE); URINE COLOR YELLOW; URINE GLUCOSE (UA) NEGATIVE (NEGATIVE); URINE KETONE TRACE (NEGATIVE); URINE LEUK ESTERASE NEGATIVE (NEGATIVE); URINE NITRITE NEGATIVE (NEGATIVE); URINE PROTEIN TRACE (NEGATIVE); URINE RBC 553 /uL (0-23.9); URINE WBC 10 /uL (0-25.8)
[2020-08-24 18:19] LABS: BASO % 0.9 % (0-2.0); EOS % 5.4 % (0-4.5); HEMATOCRIT 41.1 % (35.4-49); HEMOGLOBIN 13.8 GM/dL (11.7-16.9); LYMPH % 27.1 % (8-40); MCH 28.6 pg (25.7-33.7); MCHC 33.6 g/dl (32.0-35.9); MEAN PLT VOLUME 9.2 fl (7.5-11.1); MONO % 8.5 % (3.8-10.2); NEUT % 58.1 % (42.8-82.8); PLATELET COUNT 199 K/MM3 (134-434); RBC 4.84 M/mm3 (4.00-5.60); RDW 14.5 % (11.9-15.9); WHITE BLOOD COUNT 8.4 K/mm3 (4.0-10.0)
[2020-08-24 18:33] LABS: INR 0.93 (0.83-1.09); PROTHROMBIN TIME (PATIENT) 11.5 SEC (9.7-13.0)
[2020-08-24 18:36] LABS: ACTIVATED PTT 17.7 SECONDS (25.2-36.5)
[2020-08-24 18:39] LABS: POTASSIUM 4.5 mmol/L (3.5-5.1)
[2020-08-24 18:41] LABS: CALCIUM 8.2 mg/dL (8.5-10.1)
[2020-08-24 18:42] LABS: ALBUMIN 3.5 g/dl (3.4-5.0); BLOOD UREA NITROGEN 20.4 mg/dL (7-18)
[2020-08-24 18:45] LABS: CREATININE 0.9 mg/dL (0.55-1.3)
[2020-08-24 18:46] LABS: BILIRUBIN,TOTAL 1.4 mg/dL (0.2-1); TOT PROT 6.9 g/dl (6.4-8.2)
== END 2020-08-24 19:53 | disposition home or self-care (01) ==
LOC: JER 16:44
DX: R31.9 Hematuria, unspecified (principal)
CPT/HCPCS: 36415; 74176-TC; 80053; 80307; 81003; 85025; 85610; 85730; 87086; 93005; 93010; 99285-25